=== PATIENT | male | born 1960 | race Caucasian/White ===

== ENCOUNTER 2017-07-28 08:26 | Outpatient (CLI) | payer BC ==
--- NOTE | 2017-07-28 11:22 | RAD ---
TWO VIEWS CHEST: HISTORY: Abnormal chemistry. Abdominal pain. TECHNIQUE: PA and lateral views of the chest are obtained. FINDINGS: The lungs are well aerated. No evidence of active intrathoracic disease is seen. No evidence of eff usions, pneumonia, or pneumothorax is seen. IMPRESSION: Normal two views chest. POS: H
--- NOTE | 2017-07-28 11:55 | ULT ---
ULTRASOUND ABDOMEN COMPLETE: HISTORY: 56-year-old male with generalized abdominal pain. FINDINGS: Liver: Normal size and echogenicity. There are two round hyperechoic, nonshadowing lesions in the cecelia er. One is located near the dome of the liver, measuring approximately 1 cm in diameter. The other is also close to the liver capsule, but from the images provided, it is difficult to determine the loca tion of this lesion. It is of similar size. Gallbladder: Normal wall thickness with no calculus or sludge identified. Common duct: 4 mm. Spleen: No splenomegaly. Pancreas: Poorly visualized. Kidneys: Normal appearance of right kidney. No hydronephrosis of left kidney. Left kidney is poorly v isualized because of partial obscuring by shadowing from bowel gas. Abdominal aorta: No aneurysm. Inferior vena cava: Unremarkable in regions visualized. IMPRESSION: 1. Two small round hyperechoic hepatic lesions on the order of 1 cm in size each. Unless the patient has a history of known malignancy somewhere in the body, these are probably hepatic hemangiomas rathe r than metastases. 2. No other significant findings. CHRISTOPHER R POS: VENU
== END 2017-07-28 08:27 | disposition home or self-care (01) ==
LOC: ULT 08:26
PROVIDERS: ATTEND Internal Medicine
DX: R10.9 Unspecified abdominal pain (principal); R79.9 Abnormal finding of blood chemistry, unspecified; K76.9 Liver disease, unspecified; Z85.9 Personal history of malignant neoplasm, unspecified
CPT/HCPCS: 71046; 76700

== ENCOUNTER 2017-08-05 16:54 | Outpatient (CLI) | payer BC ==
[~2017-08-05 16:54] MED LIST: Gadobenate Dimeglumine 529 MG/1 ML (20ML VIAL) ONE
--- NOTE | 2017-08-06 09:12 | MRI ---
MRI ABDOMEN WITH AND WITHOUT IV CONTRAST: Date: 08/05/17 HISTORY: Abnormal ultrasound of the liver dated 07/28/17. FINDINGS: Correlation is made with the ultrasound of 07/28/17. There is a 12.0 mm focal lesion in the right lobe of the liver with low T1, high T2 signal, and perip heral nodular enhancement and centripetal filling on delayed postcontrast images, consistent with hem angioma. The second lesion noted on the ultrasound is not seen. The spleen, pancreas, adrenal glands, and kidneys are normal. The gallbladder is contracted. No free fluid or lymphadenopathy is noted. Th ere is no evidence of aneurysmal dilatation of the abdominal aorta. The bone marrow signal is normal. IMPRESSION: Liver hemangioma. POS: VENU
== END 2017-08-05 16:55 | disposition home or self-care (01) ==
LOC: MRI 16:54
PROVIDERS: ATTEND Internal Medicine Gastroenterology
DX: R93.2 Abnormal findings on diagnostic imaging of liver and biliary tract (principal); R14.0 Abdominal distension (gaseous); R19.7 Diarrhea, unspecified; R17 Unspecified jaundice; D72.1 Eosinophilia; D18.03 Hemangioma of intra-abdominal structures
CPT/HCPCS: 74183; A9579

== ENCOUNTER 2017-08-08 03:44 | Inpatient (IN) | payer BC ==
[2017-08-08] MEDS ORDERED: Ketorolac Tromethamine 30 MG/ML VIAL ONE (04:10)
[2017-08-08 04:18] LABS: #Basophils 0.1 thou/uL (0.0-0.2); #Eosinphils 0.6 thou/uL (0.0-0.7); #Lymphocytes 1.5 thou/uL (1.20-3.40); #Monocytes 0.6 thou/uL (0.11-0.59); #Neutrophils 7.4 thou/uL (1.40-6.50); %Basophils 0.8 % (0.0-1.0); %Eosinophils 5.9 % (0.0-10.0); %Lymphocytes 14.4 % (21.0-51.0); %Monocytes 6.1 % (0.0-10.0); %Neutrophils 72.9 % (42.0-75.0); Hemoglobin 14.7 g/dL (14.0-18.0); Mean Corpuscular HGB CONC 35.1 g/dL (32.0-36.0); Mean Corpuscular Volume 88.3 fl (80.0-94.0); Mean Platelet Volume 7.2 fL (7.4-10.4); Platelet Count 211 thou/uL (130-400); RBC Distribution Width 10.5 % (11.5-14.5); Red Blood Cell (RBC) Count 4.74 mill/uL (4.70-6.10); White Blood Cell (WBC) Count 10.1 thou/uL (4.8-10.8)
[2017-08-08 04:32] LABS: ALT (SGPT) 31 U/L (8-55); AST (SGOT) 22 U/L (5-34); Albumin 4.1 g/dL (3.5-5.0); Alkaline Phosphatase 75 U/L (40-150); Anion Gap 12 mmol/L (10-20); BUN (Urea Nitrogen) 12 mg/dL (8.4-25.7); Calc. Creatinine Clearance 0 mL/min (70-130); Calcium 9.6 mg/dL (7.8-10.44); Carbon Dioxide 23 mmol/L (22-29); Chloride 108 mmol/L (98-107); Estimated GFR-MDRD 90; Glucose 100 mg/dL (70-105); Lipase 40 U/L (8-78); Potassium 4.3 mmol/L (3.5-5.1); Protein, Total 7.1 g/dL (6.0-8.3); Sodium 139 mmol/L (136-145)
[2017-08-08 04:33] LABS: CKMB 1.5 ng/mL (0-6.6); Troponin I Less than 0.010 ng/mL (< 0.028)
[2017-08-08 05:20] LABS: Bilirubin Negative (Negative); Blood, Urine Negative (Negative); Clarity Clear (Clear); Glucose, Urine (Dipstick) Negative (Negative); Leukocyte Negative (Negative); Nitrite Negative (Negative); Protein, Urine (Dipstick) Negative (Neg-Trace); Urobilinogen 0.2 mg/dL (0.2-1.0)
[2017-08-08] MEDS ORDERED: metroNIDAZOLE 500 MG/100 ML BAG ONE (05:32)
[2017-08-08] MEDS ORDERED: Fentanyl 100 MCG/2 ML VIAL ONE (05:32)
[2017-08-08 07:25] VITALS: BMI 27.4
[2017-08-08] MEDS ORDERED: Ondansetron ODT 4 MG TAB SL PRN (07:26)
[2017-08-08] MEDS ORDERED: Ondansetron HCl/PF 4 MG/2 ML Vial IVP PRN ×2 (07:26→08:20)
[2017-08-08] MEDS ORDERED: Sodium Chloride 0.9% 1,000 ML IV SCH (07:26)
[2017-08-08] MEDS ORDERED: FLU VACC QS2017-18 36 mo. & older 0.5 ML SYRINGE IM ONE (07:45)
[2017-08-08] MEDS ORDERED: Sodium Chloride 0.65% Nasal 44 ML BOT EA NARE PRN (08:20)
[2017-08-08] MEDS ORDERED: Mag-Al 1200 mg/1200 mg/30 ML UDCUP PO PRN (08:20)
[2017-08-08] MEDS ORDERED: hydrALAZINE 20 MG/ML VIAL SLOW IVP PRN (08:20)
[2017-08-08] MEDS ORDERED: Milk Of Magnesia 30 ML UDCUP PO PRN (08:20)
[2017-08-08] MEDS ORDERED: Senokot 8.6 MG TAB PO PRN (08:20)
[2017-08-08] MEDS ORDERED: Eucerin (Mineral Oil/Petrolatum,White) 30 gm Jar TOP PRN (08:20)
[2017-08-08] MEDS ORDERED: Zolpidem Tartrate 5 MG TAB PO PRN (08:20)
[2017-08-08] MEDS ORDERED: Morphine 4 MG/ML Carpuject SLOW IVP PRN (08:20)
[2017-08-08] MEDS ORDERED: HYDROcodone/Acetaminophen 5/325 mg Tablet PO PRN (08:20)
[2017-08-08] MEDS ORDERED: Diabetic Tussin 200 MG/10 ML UDCUP PO PRN (08:20)
[2017-08-08] MEDS ORDERED: Artificial Tear Sol 15 ML BOT EA EYE PRN (08:20)
[2017-08-08] MEDS ORDERED: Loratadine 10 MG TAB PO PRN (08:20)
[2017-08-08] MEDS ORDERED: Chloraseptic Spray 180 ml Bottle PO PRN (08:20)
[2017-08-08] MEDS ORDERED: Acetaminophen 325 MG TAB PO PRN (08:20)
[2017-08-08] MEDS ORDERED: Loperamide HCl 2 MG CAP PO PRN (08:20)
[2017-08-08] MEDS ORDERED: Ondansetron ODT 4 MG TAB PO PRN (08:20)
--- NOTE | 2017-08-08 09:21 | CT ---
PRELIMINARY REPORT/[facility]/EMERGENCY AFTER HOURS PROCEDURE: Addendum created by Killian Leonardo MD on 08/08/2017 5:23 AM Central Time ([place] & [place]) Upon discussion with Dr. Howard, patient has upper endoscopy and not colonoscopy. Therefore georgie florence represents acute diverticulitis. Initial Report created on 08/08/2017 5:11 AM Central Time ([place] & [place]) EXAM: CT Abdomen and Pelvis With Intravenous Contrast CLINICAL HISTORY: 56 years old, male; Pain; Abdominal pain; Patient HX: History provided by patient, onset 5pm yesterda y. Had endoscopy yesterday. Last bm thursday. No fever, no chills, no n/v. TECHNIQUE: Axial computed tomography images of the abdomen and pelvis with intravenous contrast. Coronal reformatted images were created and reviewed. CONTRAST: 85 mL of [id number] administered intravenously. COMPARISON: No relevant prior studies available. FINDINGS: Lower thorax: No acute findings. ABDOMEN: Liver: Unremarkable. Gallbladder and bile ducts: Unremarkable Pancreas: Unremarkable. Spleen: Unremarkable. Adrenals: Unremarkable. Kidneys and ureters: Unremarkable. Stomach and bowel: Bowel wall thickening of the distal descending colon with surrounding diffuse inflammatory changes containing a focal hypodensity measuring 4 mm seen in axial images 52-53 and cor onal images 65-67. Appendix: No findings to suggest acute appendicitis. PELVIS: Bladder: Unremarkable. Reproductive: Unremarkable. ABDOMEN and PELVIS: Intraperitoneal space: No free air. No significant fluid collection. Bones/joints: A 1.1 x 1.6 cm irregular sclerosis adjacent to the greater trochanter inferiorly of the left femur. Mild multilevel degenerative changes of the spine. No acute fracture. No dislocation. Soft tissues: Unremarkable. Vasculature: Unremarkable. No abdominal aortic aneurysm. Lymph nodes: Scattered non specific subcentimeter mesenteric lymph nodes. IMPRESSION: 1. Bowel wall thickening of the distal descending colon with surrounding diffuse inflammatory changes containing a small focal hypodensity as described above. Finding may represent acute diverticulitis, however there is no other adjacent diverticula present. Therefore, a small contained perforation is not completely excluded. 2. Indeterminate 1.6 cm irregular sclerosis adjacent to the left greater trochanter incidentally note d. Follow-up or further evaluation for this finding at local radiologist's discretion. Thank you for allowing us to participate in the care of your patient. Dictated and Authenticated by: Killian Leonardo MD 08/08/2017 5:11 AM Central Time ([place] & [place]) FINAL REPORT ABDOMEN AND PELVIC CT SCAN WITH IV CONTRAST: EMERGENT AFTER HOURS EXAM TIME: 4:28 a.m. DATE: 08/08/17. FINDINGS: Focal left colon wall thickening and surrounding inflammatory changes most consistent with acute dive rticulitis. I cannot exclude the possibility of a small confined perforation. No evidence for free intraperitoneal air or a drainable abscess. POS: VENU
[2017-08-08] MEDS: Famotidine 20 MG TAB PO SCH ×2 (11:32→21:17)
[2017-08-08] MEDS: Sodium Chloride 0.9% 1,000 ML IV SCH ×2 (11:32→17:39)
[2017-08-08] MEDS: Enoxaparin Sodium 40 MG/0.4 ML SYRINGE SC SCH (11:32)
[2017-08-08] MEDS: Saccharomyces boulardii 250 MG CAP PO SCH (11:32)
--- NOTE | 2017-08-08 12:22 | HP ---
PRIMARY CARE PHYSICIAN: Dr. Tara Jara. REASON FOR ADMISSION: Acute diverticulitis. HISTORY OF PRESENT ILLNESS: A 56-year-old male with a history of hypertension, who was experiencing upper abdominal pain predominantly epigastric and left upper quadrant pain and that is why he went to see primary care physician. Primary care physician did ultrasound and it was normal, but it did laron w some spot in liver and that is why he was given a referral to a human resources assistant. After that, edilson gold saw Dr. Cori Culver, who did upper endoscopy on this last Thursday and it was unremarkable othe r than mild erythema. The patient was also ordered MRI of the liver and it was not showing any major finding. After doing endoscopy, patient went home and patient had a left lower quadrant severe pain . It was getting worse with food and it was getting worse with defecation. He did not have any linus tochezia or bright red blood per rectum. He was experiencing nausea and dyspepsia for last couple of weeks. Patient was eating a lot of vegetables and a lot of nut products, and he never had this type of probl em before. He denies any weight loss. He denies any family history of colon cancer. He never had a [place] before. He was evaluated at [facility] and he had CT abdomen and pelvis, which show ed diverticulitis. Patient was having unbearable pain and he was not able to handle medications and that is why we decided to keep this patient in the hospital for IV fluid, IV pain medication as well as IV antibiotic therapy. Patient denies any UTI symptoms. He denies any constipation, diarrhea, melena, or hematochezia. He denies any UTI symptoms. He denies any chest pain, palpitation, cough, shortness of breath. He wero es any flu-like illness. REVIEW OF SYSTEMS: The following complete review of systems was negative, unless otherwise mentioned in the HPI or below: Constitutional: Weight loss or gain, ability to conduct usual activities. Sk in: Rash, itching. Eyes: Double vision, pain. ENT/Mouth: Nose bleeding, neck stiffness, pain, te nderness. Cardiovascular: Palpitations, dyspnea on exertion, orthopnea. Respiratory: Shortness of breath, wheezing, cough, hemoptysis, fever, or night sweats. Gastrointestinal: Poor appetite, abdo sia pain, heartburn, nausea, vomiting, constipation, or diarrhea. Genitourinary: Urgency, frequen cy, dysuria, nocturia. Musculoskeletal: Pain, swelling. Neurologic/Psychiatric: Anxiety, depressi on. Allergy/Immunologic: Skin rash, bleeding tendency. Please see my HPI for pertinent positives a nd negatives. All other review of systems reviewed and negative except as mentioned in the HPI. PAST MEDICAL HISTORY: Hypertension. PAST SURGICAL HISTORY: Right knee surgery and appendicectomy. PAST PSYCHIATRIC HISTORY: Reviewed and negative. SOCIAL HISTORY: Patient is and lives at home with family. No history of tobacco, alcohol, o r illicit drug abuse. FAMILY HISTORY: No strong family history of premature coronary artery disease, stroke, or cancer. ALLERGIES: No known drug allergies. CURRENT HOME MEDICATIONS: Lisinopril 5 mg p.o. daily. EMERGENCY ROOM COURSE: Patient was given IV fluids, Levaquin 750 mg, Flagyl 500 mg, fentanyl 50 mcg, Bentyl 10 mg, Toradol 15 mg PHYSICAL EXAMINATION: VITAL SIGNS: On arrival, blood pressure 100/72, pulse 74, respiratory rate 17, temperature 98.2, sat uration 97% on room air, weight 89.3 kilograms. GENERAL: Patient is currently alert, awake, in no acute distress. HEENT: Normocephalic, atraumatic. Eyes: Pupils round, reactive to light. Extraocular muscles inta ct. ENT: Oropharynx within normal limits. Moist mucous membranes. No oral lesions. No pharyngeal eryt linus, no exudate. NECK: Supple, no JVD, no thyromegaly, no carotid bruit, no jugular venous distention. LUNGS: Clear to auscultation without any rhonchi or rales. CARDIAC: S1, S2 regular without any murmur. ABDOMEN: Soft, bowel sounds present, nontender, nondistended. No organomegaly, no mass, no suprapub ic tenderness. The patient does have exquisite tenderness in left lower quadrant with rebound tender ness, but no peritoneal signs. NEUROLOGIC: Nonfocal examination. GENITALIA: Within normal limits. SIGNIFICANT LABORATORY DATA: CT, abdomen and pelvis, showed distal descending colon thickening and i nflammatory changes consistent with diverticulitis. A 1.6 cm irregular sclerosis around the left gre ater trochanter is noted. CBC: WBC 10.1, hemoglobin 14.7, platelets 211. BMP: Sodium 139, potassi um 4.3, chloride 108, carbon dioxide 23, anion gap 12, BUN 12, creatinine 0.88, glucose 100, calcium 9.6. Lactic acid 0.9. LFT: AST 22, ALT 31, alkaline phosphatase 75, albumin 4.1, lipase 40, CK-MB 1.5, troponin I less than 0.010. Urinalysis normal. EKG: Normal sinus rhythm, within normal limits . ASSESSMENT AND PLAN: 1. Acute diverticulitis, uncomplicated. The patient has unbearable and he is not tolerating p.o. we ll and he requires IV pain medication and IV antibiotic therapy and that is why we will keep this pat ient in the hospital. We will continue with IV antibiotic therapy. We will start clear liquid diet. At this point, this patient does not need any GI or General Surgery consultation, but we will monit or in hospital. This patient is advised to follow up with Dr. Cori Culver after discharge after 2 weeks, so he will need outpatient colonoscopy after treatment of diverticulitis. Necessary dietary e ducation given . We will advance his diet based on his pain improvement. 2. Indeterminant 1.6 cm sclerosis of left greater trochanter. At this point, we will not do any fur ther investigation or evaluation while in this hospital, but the patient is advised to follow up with orthopedic physician after discharge. This is an incidental finding. 3. Hypertension. We will continue lisinopril 5 mg p.o. daily. 4. Deep venous thrombosis prophylaxis. Lovenox 40 mg subcutaneous daily. 5. Gastrointestinal prophylaxis. Pepcid 20 mg p.o. b.i.d. 6. Code status: The patient is FULL CODE. Patient does not have any surrogate decision maker. He is making his own decisions. Disposition plan based on clinical course. Patient will require hospitalization more than 2 midnight s. Plan of care discussed with the patient in detail.
[2017-08-08] MEDS: metroNIDAZOLE 500 MG in Premix Bag 1 BAG IVPB SCH ×2 (13:02→21:17)
[2017-08-08] MEDS ORDERED: metroNIDAZOLE 500 MG in Premix Bag 1 BAG IVPB SCH (14:00)
[2017-08-09] MEDS: Sodium Chloride 0.9% 1,000 ML IV SCH (05:05)
[2017-08-09] MEDS: metroNIDAZOLE 500 MG in Premix Bag 1 BAG IVPB SCH ×3 (05:05→21:08)
[2017-08-09 06:05] LABS: #Eosinphils 0.4 thou/uL (0.0-0.7); #Lymphocytes 1.8 thou/uL (1.20-3.40); #Monocytes 0.5 thou/uL (0.11-0.59); #Neutrophils 2.9 thou/uL (1.40-6.50); %Basophils 0.6 % (0.0-1.0); %Eosinophils 6.2 % (0.0-10.0); %Lymphocytes 32.2 % (21.0-51.0); %Monocytes 9.2 % (0.0-10.0); %Neutrophils 51.8 % (42.0-75.0); Mean Corpuscular HGB CONC 33.6 g/dL (32.0-36.0); Mean Corpuscular Hemoglobin 31.8 pg (27.0-31.0); Mean Corpuscular Volume 94.6 fl (80.0-94.0); Mean Platelet Volume 7.7 fL (7.4-10.4); Platelet Count 192 thou/uL (130-400); RBC Distribution Width 11.1 % (11.5-14.5); Red Blood Cell (RBC) Count 4.07 mill/uL (4.70-6.10); White Blood Cell (WBC) Count 5.7 thou/uL (4.8-10.8)
[2017-08-09 06:20] LABS: Anion Gap 10 mmol/L (10-20); BUN (Urea Nitrogen) 8 mg/dL (8.4-25.7); Calc. Creatinine Clearance 124 mL/min (70-130); Calcium 8.9 mg/dL (7.8-10.44); Carbon Dioxide 23 mmol/L (22-29); Chloride 110 mmol/L (98-107); Estimated GFR-MDRD Greater than 90; Glucose 79 mg/dL (70-105); Potassium 3.8 mmol/L (3.5-5.1); Sodium 139 mmol/L (136-145)
[2017-08-09] MEDS: Famotidine 20 MG TAB PO SCH ×2 (08:11→21:08)
[2017-08-09] MEDS: Saccharomyces boulardii 250 MG CAP PO SCH (08:11)
[2017-08-09] MEDS: Enoxaparin Sodium 40 MG/0.4 ML SYRINGE SC SCH (08:16)
[2017-08-09] MEDS: Lisinopril 5 MG TAB PO SCH (08:16)
--- NOTE | 2017-08-09 11:05 | PDOC.PN ---
- Subjective Encounter Start Date: 08/09/17 Encounter Start Time: 08:40 -: old records requested/rev Patient seen and examined. No new complaints. No overnight events pain has reduced today - Objective Resuscitation Status: Resuscitation Status FULL:Full Resuscitation MAR Reviewed: Yes Vital Signs & Weight: Vital Signs (12 hours) Temp Pulse Resp BP Pulse Ox 08/09/17 08:16 50 L 08/09/17 08:00 98.1 F 50 L 16 08/09/17 07:48 98.1 F 50 L 18 120/77 97 08/09/17 04:00 97.7 F 60 20 112/68 95 08/09/17 00:33 97.2 F L 62 20 108/69 92 L Weight Weight 196 lb 13.965 oz I&O: 08/08/17 08/09/17 08/10/17 06:59 06:59 06:59 Intake Total 1450 Balance 1450 Result Diagrams: 08/09/17 04:43 08/09/17 04:43 Phys Exam - Physical Examination Constitutional: NAD HEENT: PERRLA, moist MMs, sclera anicteric Neck: no JVD, supple Respiratory: no wheezing, no rales, no rhonchi Cardiovascular: RRR, no significant murmur, no rub Gastrointestinal: soft, no distention, positive bowel sounds mild tenderness LLQ Musculoskeletal: no edema, pulses present Neurological: non-focal, normal sensation, moves all 4 limbs Psychiatric: normal affect, A&O x 3 Skin: no rash, normal turgor Dx/Plan (1) Acute diverticulitis Code(s): K57.92 - DVTRCLI OF INTEST, PART UNSP, W/O PERF OR ABSCESS W/O BLEED Status: Acute (2) Hypertension Code(s): I10 - ESSENTIAL (PRIMARY) HYPERTENSION Status: Chronic - Plan cont current plan of care, continue antibiotics * DC IVF * advance to full liquid * tomorrow GI/bland diet * continue levaquin and flagyl * tomorrow will discharge * medication reviewed as below * symptomatic treatment. Review of Systems - Review of Systems Constitutional: negative: fever, chills, sweats, weakness, malaise, other Eyes: negative: Pain, Vision Change, Conjunctivae Inflammation, Eyelid Inflammation, Redness, Other ENT: negative: Ear Pain, Ear Discharge, Nose Pain, Nose Discharge, Nose Congestion, Mouth Pain, Mouth Swelling, Throat Pain, Throat Swelling, Other Respiratory: negative: Cough, Dry, Shortness of Breath, Hemoptysis, SOB with Excertion, Pleuritic Pain, Sputum, Wheezing Cardiovascular: negative: chest pain, palpitations, orthopnea, paroxysmal nocturnal dyspnea, edema, light headedness, other Gastrointestinal: Abdominal Pain. negative: Nausea, Vomiting, Diarrhea, Constipation, Melena, Hematochezia, Other Genitourinary: negative: Dysuria, Frequency, Incontinence, Hematuria, Retention , Other Musculoskeletal: negative: Neck Pain, Shoulder Pain, Arm Pain, Back Pain, Hand Pain, Leg Pain, Foot Pain, Other Skin: negative: Rash, Lesions, Elías, Bruising, Other - Medications/Allergies Allergies/Adverse Reactions: Allergies Allergy/AdvReac Type Severity Reaction Status Date / Time No Known Allergies Allergy Unverified 08/08/17 07:20 Medications: Current Medications Acetaminophen (Tylenol) 650 mg PO Q4H PRN PRN Reason: Headache/Fever or Pain Hydrocodone Bitart/Acetaminophen ([place] 5/325) 1 tab PO Q4H PRN PRN Reason: Moderate Pain (4-6) Al Hydroxide/Mg Hydroxide (Maalox) 30 ml PO Q6H PRN PRN Reason: Heartburn or Indigestion Artificial Tears (Tears Renewed 15ml Bottle) 0 drop EA EYE PRN PRN PRN Reason: Dry Eyes Enoxaparin Sodium (Lovenox) 40 mg SC 0900 [facility] Last Admin: 08/09/17 08:16 Dose: Not Given Famotidine (Pepcid) 20 mg PO BID [facility] Last Admin: 08/09/17 08:11 Dose: 20 mg Guaifenesin (Robitussin Sf) 200 mg PO Q4H PRN PRN Reason: Cough Hydralazine HCl (Apresoline) 10 mg SLOW IVP Q4H PRN PRN Reason: Systolic BP > 180 Levofloxacin 750 mg/ Device 150 mls @ 100 mls/hr IVPB Q24HR@0800 [facility] Last Admin: 08/09/17 08:11 Dose: 150 mls Metronidazole 500 mg/ Device 100 mls @ 100 mls/hr IVPB Q8HR [facility] Last Admin: 08/09/17 05:05 Dose: 100 mls Sodium Chloride (Normal Saline 0.9%) 1,000 mls @ 100 mls/hr IV .Q10H [facility] Last Admin: 08/09/17 05:05 Dose: 1,000 mls Lisinopril (Zestril) 5 mg PO DAILY [facility] Last Admin: 08/09/17 08:16 Dose: Not Given Loperamide HCl (Imodium) 2 mg PO PRN PRN PRN Reason: Diarrhea/Loose Stools Loratadine (Claritin) 10 mg PO DAILYPRN PRN PRN Reason: Sinus Symptoms Magnesium Hydroxide (Milk Of Magnesium) 30 ml PO DAILYPRN PRN PRN Reason: Constipation Last Admin: 08/09/17 05:13 Dose: 30 ml Mineral Oil/White Petrolatum (Eucerin Cream) 0 gm TOP BIDPRN PRN PRN Reason: Dry Skin Morphine Sulfate (Morphine) 4 mg SLOW IVP Q4H PRN PRN Reason: Severe Pain (7-10) Ondansetron HCl (Zofran Odt) 4 mg PO Q6H PRN PRN Reason: Nausea/Vomiting Ondansetron HCl (Zofran) 4 mg IVP Q6H PRN PRN Reason: Nausea/Vomiting Phenol (Chloraseptic Rhome 180 Ml Bot) 0 ml PO PRN PRN PRN Reason: Sore Throat Saccharomyces Boulardii (Florastor) 250 mg PO DAILY [facility] Last Admin: 08/09/17 08:11 Dose: 250 mg Senna (Senokot) 2 tab PO HSPRN PRN PRN Reason: Constipation Sodium Chloride (Alleghany Nasal Rhome 0.65%) 0 ml EA NARE QIDPRN PRN PRN Reason: Nasal Congestion Zolpidem Tartrate (Ambien) 5 mg PO HSPRN PRN PRN Reason: Insomnia
[2017-08-10] MEDS: metroNIDAZOLE 500 MG in Premix Bag 1 BAG IVPB SCH (05:26)
[2017-08-10] MEDS: Lisinopril 5 MG TAB PO SCH (09:47)
[2017-08-10] MEDS: Saccharomyces boulardii 250 MG CAP PO SCH (09:47)
[2017-08-10] MEDS: Enoxaparin Sodium 40 MG/0.4 ML SYRINGE SC SCH (09:47)
[2017-08-10] MEDS: Famotidine 20 MG TAB PO SCH (09:48)
--- NOTE | 2017-08-10 11:07 | DIS ---
DATE OF ADMISSION: 08/08/2017 DATE OF DISCHARGE: 08/10/2017 PRIMARY CARE PHYSICIAN: Dr. Tara Jara. DISCHARGE DISPOSITION: Home. PRIMARY DISCHARGE DIAGNOSIS: Acute diverticulitis. SECONDARY DISCHARGE DIAGNOSIS: Hypertension. PRIMARY PROCEDURE/OPERATION: None. RADIOLOGICAL INVESTIGATION: Abdomen and pelvis CT scan confirmed a descending colon diverticulitis. SIGNIFICANT LABORATORY DATA: Hemoglobin 13.0, WBC 5.7, platelets 192. Sodium 139, potassium 3.8, BU N 8, creatinine 0.86, calcium 8.9. LFTs normal. Cardiac enzymes negative. Lactic acid 0.9. Lipase 40. DISCHARGE MEDICATIONS: Levofloxacin 750 mg p.o. daily for 12 days, Flagyl 500 mg p.o. t.i.d. for 12 days, lisinopril 5 mg p.o. daily, Florastor 250 mg p.o. daily for 12 days. CONTRAINDICATIONS: None. CODE STATUS: FULL CODE. INPATIENT CONSULTANTS: None. ALLERGIES: No known drug allergies. DISCHARGE PLAN: Post hospital, the patient will make appointment with primary care physician in 1 we ek. The patient is advised to make appointment with GI in 2-3 weeks. HOSPITAL COURSE: A 56-year-old male who was admitted by me. Please see my HPI for further details. He was having severe left lower quadrant pain and he was not tolerating p.o., and because of his unb earable pain, we had to admit him in the hospital. He initially went to [facility] where he had CT, abdomen and pelvis, which confirmed descending colon diverticulitis. We admitted him in the hospital and we started on clear liquid diet and subsequently that was advanced to GI jade nd diet. While in hospital, he was given IV fluid and antibiotic therapy with Levaquin and Flagyl. In next 24-48 hours, the patient's pain significantly improved and now he is tolerating p.o. The pat ient remained afebrile while in hospital. He remained hemodynamically stable. He did not have any c omplications. He is given instruction to follow up with GI in 2-3 weeks for repeat colonoscopy and h e is given necessary dietary education. PHYSICAL EXAMINATION: The patient is seen and examined at bedside today. VITAL SIGNS: Currently, temperature 97.7, pulse 54, respiratory rate is 18, blood pressure 126/81, s aturation 98% on room air, weight 196 pounds. GENERAL: The patient is currently alert, awake, in no acute distress. HEAD: Normocephalic, atraumatic. EYES: Pupils round and reactive to light. Extraocular muscle intact. ENT: Oropharynx within normal limits. Moist mucous membranes. No oral lesions. No pharyngeal eryt linus, no exudate. NECK: Supple, no JVD, no thyromegaly, no carotid bruit. LUNGS: Clear to auscultation without any rhonchi or rales. CARDIAC: S1, S2 regular without any murmur. ABDOMEN: Soft and benign without any tenderness. EXTREMITIES: No edema. NEUROLOGIC: Nonfocal examination. Overall, patient is medically stable for discharge. All new medication prescriptions sent to his [facility] and review of systems reviewed him and negative.
[2017-08-10 11:50] VITALS: BP 146/90; TEMP 97.6
== END 2017-08-10 14:45 | disposition home or self-care (01) | DRG 392 ==
LOC: SCSER 03:44 → T4-B 06:59
PROVIDERS: ADMIT Hospitalist; ATTEND Hospitalist
DX: K57.32 Diverticulitis of large intestine without perforation or abscess without bleeding (principal); I10 Essential (primary) hypertension
CPT/HCPCS: 36415; 74177; 80048; 80053; 81003; 82553; 83605; 83690; 84484; 85025; 93005; 96361; 96365; 96367; 96372; 96375; J1650; J1885; J1956; J3010